=== PATIENT | male | born 1945 | race Caucasian/White ===

== ENCOUNTER → 2023-12-15 08:11 | Outpatient (REF) | payer MEDICARE, OTHER, SELFPAY | LOC: HWRCS 08:11 | PROVIDERS: ATTENDING PHYSICIAN Internal Medicine Cardiovascular Disease; FAMILY PHYSICIAN Family Medicine | DX: I25.10 Atherosclerotic heart disease of native coronary artery without angina pectoris (principal); I45.10 Unspecified right bundle-branch block; I35.8 Other nonrheumatic aortic valve disorders | CPT/HCPCS: 93306 ==